=== PATIENT | male | born 1995 | race Caucasian/White ===

== ENCOUNTER → 2018-01-22 | Outpatient (CLI) | payer BC | END | disposition home or self-care (01) | LOC: KCIC 10:47 | DX: R10.30 Lower abdominal pain, unspecified (principal); R19.5 Other fecal abnormalities | CPT/HCPCS: 74018 ==

== ENCOUNTER → 2018-12-23 | Outpatient (CLI) | payer OTHER ==
--- NOTE | 2018-12-23 11:34 | KCIC ---
KUB History: Constipation for one week Comparison: None. Findings: 2 supine AP views of abdomen are submitted. There is moderate variable retained stool in the colon including of the rectosigmoid colon as well as segments of ascending and descending colon. Small bowel is not significantly dilated. Exam is insufficient for the evaluation for free air. Impression: 1. There is some variable retained stool in the colon. Electronically signed by: Jonathon Kay MD (12/23/2018 11:31 AM) [facility]
== END | disposition home or self-care (01) ==
LOC: KCIC 10:43
PROVIDERS: ATTEND Family Medicine
DX: K56.41 Fecal impaction (principal)
CPT/HCPCS: 74018